=== PATIENT | male | born 1970 | race African-American/Black ===

== ENCOUNTER 2019-09-07 07:26 | Emergency (ER) | payer MEDICARE, OTHER ==
[~2019-09-07] VITALS: Ht 170.2 cm; Wt 108.0 kg
[2019-09-07] MEDS ORDERED: KETOROLAC 30MG/ML VIAL IV ONE (09:00)
[2019-09-07] MEDS ORDERED: METHOCARBAMOL 500MG TABLET PO ONE (09:00)
[2019-09-07] MEDS ORDERED: HYDRALAZINE 20MG/ML VIAL IV ONE (09:30)
[2019-09-07 09:32] LABS: BASOPHILS % 1.2 % (0.0-2.0); EOSINOPHILS % 6.9 % (0.0-5.0); HEMATOCRIT. 43.1 % (42.0-52.0); HEMOGLOBIN. 14.8 g/dL (14.0-18.0); LYMPHOCYTES % 36.3 % (20.0-50.0); MEAN CORPUSCULAR HEMOGLOBIN 30.4 pg (28.0-32.0); MEAN CORPUSCULAR VOLUME 88.5 fL (80.0-94.0); MONOCYTES % 5.7 % (2.0-8.0); NEUTROPHILS % 49.9 % (40.0-76.0); PLATELET 160 x1000/uL (130-400); RED BLOOD CELL COUNT 4.86 mill/uL (4.7-6.1); RED CELL DISTRIBUTION WIDTH 13.6 % (11.6-14.6)
[2019-09-07 09:36] LABS: CHLORIDE 104 mEq/L (98-107)
[2019-09-07 09:47] LABS: *BARBITURATES SCREEN URINE NEGATIVE (NEGATIVE); *COCAINE SCREEN URINE NEGATIVE (NEGATIVE); CANNABINOID URINE SCREEN PRESUMTIVE POSITIVE (NEGATIVE); METHADONE URINE SCREEN NEGATIVE (NEGATIVE); OPIATES URINE SCREEN NEGATIVE (NEGATIVE); PHENCYCLIDINE URINE SCREEN NEGATIVE (NEGATIVE)
[2019-09-07 09:48] LABS: *AMPHETAMINES SCREEN URINE NEGATIVE (NEGATIVE); *BENZODIAZEPINES SCREEN URINE NEGATIVE (NEGATIVE)
[2019-09-07 11:30] VITALS: BP 170/100
== END 2019-09-07 13:00 | disposition home or self-care (01) ==
LOC: ER 07:40
DX: M54.12 Radiculopathy, cervical region (principal); I10 Essential (primary) hypertension; M54.30 Sciatica, unspecified side; Z91.14 Patient's other noncompliance with medication regimen
CPT/HCPCS: 36415; 71045; 72125; 80053; 80305; 83880; 84484; 85025; 93005; 96374; 96375; 99285; J0360; J1885